=== PATIENT | male | born 1985 | race Caucasian/White ===

== ENCOUNTER 2022-07-29 13:04 | Emergency (ER) | payer OTHER, SELFPAY ==
[2022-07-29 13:17] VITALS: BP 105/72; PULSE 78; RESP 18; TEMP 36.6; O2SAT 98; BMI 24.3
--- NOTE | 2022-07-29 13:34 | ED.EAR ---
HPI - Ear Problem General Chief complaint: Ear/Nose/Throat Problem Stated complaint: Ear Infection Time Seen by Provider: 07/29/22 13:17 History of Present Illness HPI Narrative: This 37-year-old male comes in reporting right ear pain for the past 2 or 3 days. He thinks that he has an infection there. He does not report any fever, cough, or sore throat. He does have some nasal congestion. He states that the ear pain kept him awake last night. Related Data Home Medications Medication Instructions Recorded Confirmed clonidine HCl 0.3 mg tablet 0.3 mg PO BID PRN 03/14/22 03/14/22 omeprazole 20 mg tablet,delayed mg PO DAILY 03/14/22 03/14/22 release ondansetron 4 mg disintegrating 4 mg PO Q6H PRN 03/14/22 03/14/22 tablet sulfamethoxazole 800 1 tab PO BID 03/14/22 03/14/22 mg-trimethoprim 160 mg tablet Previous Rx's Medication Instructions Recorded trazodone 100 mg tablet 100 mg PO .Bedtime #30 tabs 03/14/22 polyethylene glycol 3350 17 4 g PO QDAY #850 grams 03/21/22 gram/dose oral powder (Miralax) buprenorphine 8 mg-naloxone 2 mg 2 film sublingual DAILY #56 ea 06/20/22 sublingual film buspirone 10 mg tablet 10 mg PO TID #90 tabs 06/20/22 quetiapine 25 mg tablet 25 mg PO QHS #60 tabs 06/20/22 amoxicillin 500 mg capsule 500 mg PO TID 10 days #30 caps 07/29/22 Allergies Allergy/AdvReac Type Severity Reaction Status Date / Time No Known Allergies Allergy Unverified 03/08/22 12:56 Review of Systems Status of ROS: Reports: 10 or more systems reviewed and unremarkable except as noted in History and below Narrative: Constitutional: No fevers, no weight gain or loss. Eyes: No discharge. No vision changes. HENT: Right ear pain. Nasal congestion. No sore throat. Cardiovascular: No chest pain, no palpitations. Respiratory: No shortness of breath, no wheezes, no cough. Gastrointestinal: No abdominal pain, no vomiting, no diarrhea. Genitourinary: No dysuria, no hematuria. Musculoskeletal: Normal range of motion. Skin: No rashes, no pruritis. Neurological: No dizziness, weakness, sensory change, speech change. Endo/Heme/Allergies: No bruising or bleeding. No polydipsia. Pysch: no suicidality, no anxiety, no insomnia. All other systems reviewed and are negative. [facility] Medical History (Updated 07/29/22 @ 13:36 by Humberto Church MD) History of heroin abuse History of methicillin resistant Staphylococcus aureus infection Family History (Updated 03/08/22 @ 12:56 by Iain Andino) Other Anxiety disorder Bipolar disorder Depression Social History Smoking Status: Current every day smoker Do you use any of these nicotine containing products: None Non-prescribed substance use: denies use Exam Narrative: Exam Narrative: Constitutional: Well-developed, well-nourished, no acute distress. HEENT: Normocephalic, atraumatic. Left tympanic membrane appears normal. Right tympanic membrane is partially visualized as there is some swelling of the ear canal without any discharge. He has distinct pain when attempting to straighten the ear canal for better visualization. Neck: Normal range of motion. Nontender. Supple. Heart: Regular. No murmurs. Normal rate. Intact distal pulses. Lungs: Clear to auscultation. No chest discomfort. No wheezes, rhonchi, or rales. Abdomen: Normal bowel sounds. Nontender. No rebound tenderness. Genitalia: Deferred. Back: No midline tenderness. Normal range of motion. Extremities: Normal range of motion. No injury. Skin: Intact. No rash. Warm. No erythema or pallor. Neurologic: No altered sensation. No weakness. Alert and oriented. Psychiatric: No suicidality. No anxiety or depression. No insomnia. Nursing notes and vitals signs are reviewed. Const: Vital Signs, click to edit/add: Vital Signs - 24 hr 07/29/22 13:17 Temperature 97.8 F Pulse Rate [Right Pulse Oximeter] 78 Respiratory Rate 18 Blood Pressure [Ri ght Upper Arm] 105/72 Pulse Oximetry 98 Oxygen Delivery Me thod Room Air Course Vital Signs Vital signs: Initial Vital Signs Temperature 97.8 F 07/29/22 13:17 Temperature Source Temporal Artery Scan 07/29/22 13:17 Pulse Rate 78 07/29/22 13:17 Respiratory Rate 18 07/29/22 13:17 Blood Pressure 105/72 07/29/22 13:17 Blood Pressure Mean 83 07/29/22 13:17 Blood Pressure Position Sitting 07/29/22 13:17 Pulse Oximetry 98 07/29/22 13:17 Oxygen Delivery Method 07/29/22 13:17 Vital Signs Temperature 97.8 F 07/29/22 13:17 Pulse Rate 78 07/29/22 13:17 Respiratory Rate 18 07/29/22 13:17 Blood Pressure 105/72 07/29/22 13:17 Pulse Oximetry 98 07/29/22 13:17 Oxygen Delivery Method 07/29/22 13:17 Temperature 97.8 F 07/29/22 13:17 Pulse Rate 78 07/29/22 13:17 Respiratory Rate 18 07/29/22 13:17 Blood Pressure 105/72 07/29/22 13:17 Pulse Oximetry 98 07/29/22 13:17 Oxygen Delivery Method 07/29/22 13:17 Medical Decision Making MDM Narrative Medical decision making narrative: This patient comes in with right ear pain due to otitis media. A prescription for amoxicillin is provided. He is encouraged to use [id number] medicines also as needed and directed. Discharge Plan Discharge Clinical Impression: Otitis media Patient Disposition: Home, Self-Care Condition: Unchanged Additional Instructions: Take medications as needed and indicated. Follow up with MD or return if worsening. Prescriptions: New amoxicillin 500 mg capsule 500 mg PO TID 10 Days Qty: 30 0RF No Action buprenorphine-naloxone 8-2 mg film 2 film sublingual DAILY Qty: 56 0RF quetiapine 25 mg tablet 25 mg PO QHS Qty: 60 0RF buspirone 10 mg tablet 10 mg PO TID Qty: 90 0RF sulfamethoxazole-trimethoprim 800-160 mg tablet 1 tab PO BID clonidine HCl 0.3 mg tablet 0.3 mg PO BID PRN omeprazole 20 mg tablet,delayed release (DR/EC) PO DAILY ondansetron 4 mg tablet,disintegrating 4 mg PO Q6H PRN trazodone 100 mg tablet 100 mg PO .Bedtime Qty: 30 2RF polyethylene glycol 3350 [Miralax] 17 gram/dose powder 4 g PO QDAY Qty: 850 5RF Follow Up/Referrals: Renee Saab, [employer]PER[employer]OR, [employer] [Primary Care Provider] - Stand Alone [facility] Info Inst[facility]
--- NOTE | 2022-07-29 17:18 | ED.NURSE ---
Patient called to report that pharmacy had not received rx. RN called RX in to [facility] in [place].
== END 2022-07-29 13:42 | disposition home or self-care (01) ==
PROVIDERS: Emergency Provider Emergency Medicine Emergency Medical Services; PCP Nurse Practitioner Family
DX: H66.91 Otitis media, unspecified, right ear (principal)
CPT/HCPCS: 99283; 99284

== ENCOUNTER 2023-09-19 19:45 | Emergency (ER) | payer BC, SELFPAY ==
[2023-09-19 19:52] VITALS: BP 134/80; PULSE 83; RESP 16; TEMP 36.7; O2SAT 100; BMI 25.8
--- NOTE | 2023-09-19 20:09 | ED_ITS ---
HPI - Wound/Laceration General Time Seen by Provider: 20:09 Date Seen: 09/19/23 Chief Complaint: Laceration/Wound Stated Complaint: Swelling/infection L arm Time Seen by Provider: 09/19/23 20:08 Source: patient and RN notes reviewed Mode of arrival: ambulatory Limitations: no limitations History of Present Illness HPI narrative: Rebel is a very pleasant 38-year-old gentleman who is UA states his tetanus is fully up-to-date, history of MRSA otherwise healthy per his report who comes to the emergency room for evaluation of left arm infection. Patient notes that he was working in the garage and thinks that he had a scratch. He has noticed at the scab on his the forearm the on the left over the past 2 weeks now with increasing redness over the past 6 days. He states that he actually started some leftover Bactrim for 2 days and then went to doxycycline for 3 days but notes that is getting worse. Today he picked off the scab any had some pus come out. He has not had any fevers or chills. He feels like he has swelling in this area of the scab as well. Rebel agrees he has a history of MRSA. Denies tobacco use, diabetes, drug use. Related Data Home Medications Medication Instructions Recorded Confirmed omeprazole 20 mg tablet,delayed mg PO DAILY 03/14/22 03/28/23 release ondansetron 4 mg disintegrating 4 mg PO Q6H PRN 03/14/22 03/28/23 tablet bupropion HCl 150 mg tablet,12 hr 150 mg PO QDAY 01/30/23 03/28/23 sustained-release (Wellbutrin SR) Previous Rx's Medication Instructions Recorded trazodone 100 mg tablet 100 mg PO .Bedtime #30 tabs 03/14/22 polyethylene glycol 3350 17 4 g PO QDAY #850 grams 03/21/22 gram/dose oral powder (Miralax) quetiapine 25 mg tablet 25 mg PO QHS #60 tabs 01/30/23 buprenorphine 8 mg-naloxone 2 mg 3 film sublingual DAILY #42 ea 03/27/23 sublingual film bupropion HCl 300 mg 24 hr tablet, 300 mg PO QAM #30 tabs 03/27/23 extended release (Wellbutrin XL) gabapentin 300 mg capsule 300 mg PO 3XD #90 caps 03/27/23 clindamycin HCl 150 mg capsule 450 mg (3 x 150 mg) PO TID 7 days 09/19/23 #15 caps Allergies Allergy/AdvReac Type Severity Reaction Status Date / Time No Known Allergies Allergy Verified 03/28/23 16:15 Review of Systems Status of ROS: Reports: 6 or more systems reviewed and unremarkable except as noted in History and below [facility] Medical History Open fracture of tuft of distal phalanx of left thumb ?S62.522B - Displaced fracture of distal phalanx of left thumb, initial encounter for open fracture (ICD-10) History of methicillin resistant Staphylococcus aureus infection ?Z86.14 - Personal history of Methicillin resistant Staphylococcus aureus infection (ICD-10) History of heroin abuse ?F11.11 - Opioid abuse, in remission (ICD-10) Family History Other Anxiety disorder Bipolar disorder Depression Social History Smoking Status: Current every day smoker Do you use any of these nicotine containing products: None Non-prescribed substance use: denies use Exam Narrative: Exam Narrative: Alert and oriented. Mentating normally. No respiratory distress Examination of the left arm, dorsal surface in the midline there is an area of firmness with associated less than dime size scab. There is no active drainage at this time. There is some mild erythema surrounding this area. No significant fluctuance. Multiple other scratches in various stages of healing on his arms. He is able to move his fingers without difficulty. A quick bedside ultrasound shows what I believe to be a fluid collection. Procedure: After informed consent this area was cleansed with Betadine. 1% lidocaine with epinephrine was used for anesthesia. A 1.3 cm incision was made in lateral to the scabbed area and approximately 10 mL of thickened purulent debris a did exit. Blunt dissection with curved forceps healed would only minimal further drainage. The wound was then packed with quarter-inch iodoform gauze. Nursing staff then placed Telfa pad and wrapped with Kerlix. Const: Vital Signs, click to edit/add: Vital Signs - 24 hr 09/19/23 19:52 Temperature 98.1 F Pulse Rate [Pulse Oximeter] 83 Respiratory Rate 16 Blood Pressure [Ri ght Upper Arm] 134/80 Pulse Oximetry 100 Oxygen Delivery Me thod Room Air Documenting provider has reviewed patient's vital signs: yes Course Vital Signs Vital signs: Initial Vital Signs Temperature 98.1 F 09/19/23 19:52 Temperature Source Temporal Artery Scan 09/19/23 19:52 Pulse Rate 83 09/19/23 19:52 Respiratory Rate 16 09/19/23 19:52 Blood Pressure 134/80 09/19/23 19:52 Blood Pressure Mean 98 09/19/23 19:52 Blood Pressure Position Sitting 09/19/23 19:52 Pulse Oximetry 100 09/19/23 19:52 Oxygen Delivery Method Room Air 09/19/23 19:52 Vital Signs Temperature 98.1 F 09/19/23 19:52 Pulse Rate 83 09/19/23 19:52 Respiratory Rate 16 09/19/23 19:52 Blood Pressure 134/80 09/19/23 19:52 Pulse Oximetry 100 09/19/23 19:52 Oxygen Delivery Method Room Air 09/19/23 19:52 Temperature 98.1 F 09/19/23 19:52 Pulse Rate 83 09/19/23 19:52 Respiratory Rate 16 09/19/23 19:52 Blood Pressure 134/80 09/19/23 19:52 Pulse Oximetry 100 09/19/23 19:52 Oxygen Delivery Method Room Air 09/19/23 19:52 Medications Administered Medications: Discontinued Medications Generic Name Dose Route Start Last Admin Trade Name Freq PRN Reason Stop Dose Admin Clindamycin HCl 450 mg 09/19/23 20:53 09/19/23 21:11 Clindamycin 150 Mg Capsule PO 09/19/23 20:54 450 mg ONCE ONE Administration Clindamycin HCl 450 mg 09/19/23 21:00 09/19/23 21:11 Clindamycin 150 Mg Capsule PO 09/19/23 21:01 450 mg ONCE ONE Administration MDM - Wound/Laceration MDM Narrative Medical decision making narrative: 1. Left arm abscess-identified by bedside ultrasound but only approximately 10 mL of purulent fluid was expressed. I had honestly expected more drainage given the firmness surrounding the wound. Packing was done and we did discuss antibiotic use. Patient has had 2 days of Bactrim and 3 days of doxycycline with really no improvement. At this time will have him discontinue those medications. Given the fact that he has a history of MRSA I did suggest 1 dose of vancomycin and he stated he did not want an IV. Therefore I have switched him to clindamycin 450 mg 1st dose given tonight, 2nd dose sent home with him to be taken in the morning and subsequent prescription sent to his pharmacy. 2. Disposition-at this time our plan is to have nickel follow-up with surgery if he is not improving. Th there may be a need for deeper and more expansive I&D. If he is improving he may remove the wick tomorrow night and continue to monitor. If he actually has worsening symptoms he will return to the emergency room at which time will need to revisit the need for vancomycin. Tylenol or ibuprofen may be used for pain. I do note that he is on Suboxone and has a history of opioid use disorder. Patient's last tetanus was in 2015. Medical Records Attestation: I reviewed the patient's medical records. Discharge Plan Discharge Clinical Impression: Abscess Patient Disposition: Home, Self-Care Condition: Improved Instructions: Abscess (ED) Additional Instructions: Follow up in the next 48 hours with surgery [phone] to make an appointment if you are not improving. If redness, swelling, is improved you may continue to monitorand can pull the wick out of your wound tomorrow evening. Ibuprofen or tylenol as needed for discomfort stop the antibiotics you have at home and switch to clindamycin - first dose in the er tonight. The remainder sent to your pharmacy return to the er if you have a fever, have worsening symptoms and as needed Prescriptions: New clindamycin HCl 150 mg capsule 450 mg PO TID 7 Days Qty: 15 0RF No Action bupropion HCl [Wellbutrin SR] 150 mg tablet sustained-release 12 hr 150 mg PO QDAY quetiapine 25 mg tablet 25 mg PO QHS Qty: 60 0RF omeprazole 20 mg tablet,delayed release (DR/EC) PO DAILY ondansetron 4 mg tablet,disintegrating 4 mg PO Q6H PRN trazodone 100 mg tablet 100 mg PO .Bedtime Qty: 30 2RF gabapentin 300 mg capsule 300 mg PO 3XD Qty: 90 1RF bupropion HCl [Wellbutrin XL] 300 mg tablet extended release 24 hr 300 mg PO QAM Qty: 30 1RF buprenorphine-naloxone 8-2 mg film 3 film sublingual DAILY Qty: 42 0RF polyethylene glycol 3350 [Miralax] 17 gram/dose powder 4 g PO QDAY Qty: 850 5RF Follow Up/Referrals: Renee Saab APRN, ASSISTANT [employer]ORATORY DIRECTOR [Primary Care Provider] - Stand Alone Forms: [id number] Info Instructions
--- NOTE | 2023-09-19 20:54 | ED.NURSE ---
Assisted MD in room with IND. Pt wound on L arm bandaged with telfa, gauze roll, and kerlix. Arm sling applied to pt L arm.
[2023-09-19] MEDS: CLINDAMYCIN 150 MG CAPSULE 450 MG PO ×2 (21:11)
--- NOTE | 2023-09-19 21:11 | ED.NURSE ---
Patient administered 450 mg Clindamycin here in the ER, another dose sent home. Both documented on the OCT.
== END 2023-09-19 21:14 | disposition home or self-care (01) ==
LOC: ED 20:58
PROVIDERS: Emergency Provider Family Medicine; PCP Nurse Practitioner Family
DX: L02.414 Cutaneous abscess of left upper limb (principal)
CPT/HCPCS: 10061; 87070; 87186; 99283; 99284; A9270